=== PATIENT | female | born 1930 | race Caucasian/White ===

== ENCOUNTER 2019-07-04 00:29 | Inpatient (IN) | payer OTHER ==
[~2019-07-04] VITALS: Ht 165.1 cm; Wt 74.5 kg
[2019-07-04] MEDS ORDERED: LASIX 40 MG TAB40 M2 PO (02:23)
[2019-07-04] MEDS ORDERED: SEROQUEL XR50 MG PO (02:24)
[2019-07-04] MEDS ORDERED: PRINIVIL20 M1 PO (02:24)
[2019-07-04 03:23] VITALS: BP 157/68
--- NOTE | 2019-07-04 03:44 | NUR ---
ADMISSION NOTE - PATIENT ARRIVED FROM [facility] ED VIA EMS. SHE ARRIVED TO THE UNIT IN A GOWN AND DISHEVELED APPEARANCE WITH A FOWL SMELLING ODOR. SHE APPEARS CONFUSED AND BELIEVES SHE IS IN [place]. STAFF HAS REDIRECTED PATIENT SEVERAL TIMES. SHE IS [place] AND YOU MUST GET VERY CLOSE TO PATIENT IN ORDER FOR HER TO UNDERSTAND WORDS SAID. STAFF HAS PROVIDED MARKER AND PAPER TO HELP FACILITATE COMMUNICATION. SHE CONTINUES TO MAKE ODD STATEMENTS SUCH 'IS THERE A RIVER AROUND HERE, I COULD JUST JUMP IN IT YOU KNOW.' SHE ALSO STATES SEVERAL TIMES 'I COULD JUST SLIT MY THROAT.'
--- NOTE | 2019-07-04 09:25 | NUR ---
PETER called and spoke with Ivonne VELA and OSWALDO [phone]. This pt has been living at home alone, and has increased paranoid delusions with HI and SI. They are looking into memory AL for her, and this is what prompted her current behavoiral outburst. PETER provided unit information and call back infor for referrals and placement needs.
[2019-07-04 13:53] VITALS: BP 158/94
[2019-07-04 16:24] VITALS: BP 158/94
--- NOTE | 2019-07-04 16:31 | NUR ---
0708 Report received from overnight shift. Patient ate breakfast and took medication. Patient is very bitter that family has put her in the hospital. Patient attended group but minimal participation. Patient has not shown aggression, but sad she is here.
[2019-07-04 17:00] LABS: HEMATOCRIT 36.7 % (37.0-47.0); HEMOGLOBIN 12.1 gm/dL (12.0-15.0); MCH 28.2 pg (26.0-34.0); MCHC 32.8 g/dL (28.0-37.0); MCV 85.9 fL (80.0-100.0); RBC 4.28 mil/uL (4.20-5.00); RDW 14.3 % (10.5-14.5)
[2019-07-04 17:14] LABS: ALBUMIN 3.9 g/dL (3.4-5.0); CALCIUM 9.5 mg/dL (8.5-10.1); CREATININE 1.7 mg/dL (0.6-1.0); POTASSIUM 3.8 mmol/L (3.5-5.1); TOTAL BILIRUBIN 0.5 mg/dL (<0.1-1.0); TOTAL PROTEIN 7.4 g/dL (6.4-8.2)
[2019-07-04 17:38] LABS: FOLIC ACID 6.1 ng/mL (8.6-58.9); TSH 0.122 uIU/mL (0.358-3.740)
[2019-07-04 20:40] VITALS: BP 104/66
--- NOTE | 2019-07-04 23:19 | NUR ---
PT RESTING IN BED UPON ARRIVAL TO SHIFT. PT DID WALK TO RESTROOM WITH WALKER X 2 WITH STEADY BUT PUSHED AND LEANING FORWARD GAIT. PT IRRITABLE AND AGITATED, THREATENING TO HIT PROVIDERS WHEN SHE IS REDIRECTED OR ASSISTED WITH CLOTHING REMOVAL OR INCONTINENCE CARE. PT INITIALLY REFUSED MEDICATIONS BUT WAS LATER REAPPROACHED WITH ICE CREAM AND COMPLIANT.
--- NOTE | 2019-07-04 23:22 | NUR ---
PT RESTLESS AGITATED CONTINUES TO WALK TOWARDS THE WINDOW STATING SHE WANTS TO LEAVE. PT NOT FOLLOWING VERBAL REDIRECTIONS TO GO TOWARDS DOOR. PT ASKING WHERE HER IS, IS THE BABY LYING DOWN, WHAT DID YOU DO TO YOUR HAIR COLOR. PT PHYSICALLY RESISTIVE TO HAVING DIRTY CLOTHES REMOVED AND NEW BRIEF PLACED ON. PT PACING THE HALLS, WALKING TOWARDS THE DOOR, WANDERING INTO PEERS ROOMS. PT ASKED WHY IT IS SO FAR. PRN PROVIDED X 1. APPROXIMATELY 30 MINS LATER PT ASKED TO TURN UP THE FURNACE AND WAS ESCORTED TO BED.
[2019-07-05 08:57] VITALS: BP 133/46
[2019-07-05 10:13] VITALS: BP 133/66
--- NOTE | 2019-07-05 13:19 | NUR ---
708 Report received from overnight shift, patient had a attitude when asked to get up for breakfast. She did her hygeine and ate breakfast. Patient took medication without incident. She does not participatein group, but does talk with other female patients. She denied SI today, patient wants to go home, patient cooperative and redirects well.
[2019-07-05 21:10] VITALS: BP 160/67
--- NOTE | 2019-07-05 23:09 | NUR ---
PT RESTING IN BED UPON ARRIVAL TO SHIFT TALKING WTIH HER ROOMATE. PT IS SMILING, GOOD EYE CONTACT, LAUGHING WITH ROOMMATE. PT COMPLIANT WITH MEDICATION AND ICE CREAM. PT ASKED FOR MORE CLOTHES AND MONEY SO SHE CAN BUY MAXI PADS. PT AMBULATES STEADY WITH WALKER, SHOULDERS ARE SLUMPED OVER. PT HAS CT SCAN IN AM. NO RESISTANCE TOWARD ASSISTANCE WITH ADL CARES OR REDIRECTION.
[2019-07-06 08:11] VITALS: BP 150/78
--- NOTE | 2019-07-06 10:36 | EKG ---
[address] [address] ELECTROCARDIOGRAM REPORT Name: HEIDY LOMBARDO Room #: 523B-B ADM IN M.R.#: [id number] Admission: 07/04/19 Attend Phys: Tramaine James DO Discharge: Date of : 34 Report #: [id number] THIS REPORT FOR: //name// [facility] Test Date: 2019-07-06 Test Time: 10:30:10 Pat Name: HEIDY LOMBARDO Department: Room: [facility] B Gender: F Cold Header: CRISTA : 1930 Requested By: Vivian Linder Order Number: [id number] MD: Alphonso Hensley Measurements Intervals [place] Rate: 73 P: 76 MS: 149 QRS: 39 QRSD: 106 T: 81 QT: 410 QTc: 452 Interpretive Statements Sinus rhythm Anteroseptal infarct, old Unspecific ST-T wave changes Baseline wander No previous ECG available for comparison Electronically Signed On 07-06-2019 10:36:01 CDT by Alphonso Hensley [email or web address] <ELECTRONICALLY SIGNED> By: Alphonso Hensley MD 106 [id number] 29 Alphonso Hensley MD /EPI
[2019-07-06 15:04] LABS: URINE BILIRUBIN NEGATIVE (Negative); URINE BLOOD NEGATIVE (Negative); URINE CLARITY CLEAR; URINE COLOR YELLOW; URINE GLUCOSE-RANDOM* NEGATIVE (Negative); URINE KETONES NEGATIVE (Negative); URINE LEUKOCYTES-REFLEX TRACE (Negative); URINE NITRITE-REFLEX NEGATIVE (Negative); URINE PROTEIN (DIPSTICK) TRACE (Negative); URINE UROBILINOGEN 0.2 E.U./dl (0.2-1.0)
--- NOTE | 2019-07-06 19:28 | NUR ---
Up ambulating in room with walker. Orientated to self. Difficult to communicate with d/t no batteries in hearing aids. Denies pain. Breath sounds clear t/o, no s/o resp distress. Regular HR auscultated. Color pink with brisk capillary refill and palpable peripheral pulses. Active bowel sounds over soft, rounded abdomen. Wearing briefs, continent at times. Sometimes incontinent. No s/o skin breakdown. [address] and 12 lead EKG done. Continues to ambulate in unit. Talking with peers. 1700 Room changed to room 17 d/t need to talk loudly and repeat questions d/t hearing. States she is scared to stay by herself. 1830 Incontinent in briefs. Ambulating on unit with walker without s/o distress.
[2019-07-06 19:29] VITALS: BP 140/67
--- NOTE | 2019-07-06 23:05 | NUR ---
Care assumed of patient at 1915: Patient alert and oriented to person. Patient appears confused and forgetful. Patient has been impulsive and a bit anxious this evening. Patient was moved to a new room which is by herself. Patient reports that she is scared of being alone. Patient also reports that she is afraid of the dark and would like to leave a night light on. Entry light and bathroom lights turned on which patient reports as "better". Patient does keep closing her door to her room. Patient educated multiple times to leave door cracked open due to staff needing to check on her. Patient reports that she is "never" able to sleep and would like to be able to sleep tonight. Patient is hard of hearing. Family is to be bringing in batteries for her hearing aides. Patient took medication whole without difficulty. Patient denies pain or discomfort. Patient denies SI/HI/AH/VH. No s/s of delusional or paranoia behaviors. Patient denied HS snack. Patient restless at times, wandering about her room, taking her clothing off then putting it back on, moving around things in her room. Patient appears to have calmed down and has been resting quietly in bed since approximately 2200.
[2019-07-07 07:00] VITALS: BP 110/87
[2019-07-07 08:30] VITALS: BP 110/87
--- NOTE | 2019-07-07 08:30 | NUR ---
PT VERY [place], PT STATED THAT SHE ISN'T HAPPY BEING HERE IN THIS SITUATION. PT COMPLIANT WITH MEDS AND GROUPS. PT USES WALKER TO AMBULATE, STEADY GAIT. LUNGS CLEAR. NO COMPLAINTS OF PAIN.
[2019-07-07 09:57] VITALS: BP 110/87
[2019-07-07 19:45] VITALS: BP 115/49
--- NOTE | 2019-07-08 00:07 | NUR ---
ASSUMED CARE @ 19:15, PATIENT IN ROOM WITH DOOR CLOSED. UPON UNLOCKING THE DOOR AND EXPLAINING THAT DOORS CANNOT BE SHUT, SHE TALKED ABOUT TRYING TO JUMP OUT THE WINDOW AND ESCAPE AND ANGRY THAT HOSPITAL STAFF WILL NOT LET HER GO. DOES NOT APPEAR TO HAVE ANY LEVEL OF ABILITY TO HEAR. DOES NOT SEEM TO UNDERSTAND THE SPOKEN WORD AT ANY VOLUME, DOES NOT APPEAR TO HAVE ANY LEVEL OF UNDERSTANDING EVEN WHEN STAFF MEMBER LIFTS HER FACE TO MANAGER NEW PRODUCT HER TO LOOK AT THE FACE OF THE SPEAKER. PT WILL SPEAK IN FULL SENTENCES REGARDING HER ANGER WITH FAMILY. SHE DOES NOT ENGAGE IN A TWO WAY CONVERSATION, DUE TO HEARING LOSS. REPORTS THAT SHE WANTS TO KILL HER FAMILY, REPORTS THAT SHE WANTS TO JUMP OUT A WINDOW. REPORTS THAT SHE IS ANGRY WITH HER FAMILY FOR ADMITTING HER TO THE HOSPITAL.
[2019-07-08 00:22] VITALS: BP 115/49
--- NOTE | 2019-07-08 05:24 | NUR ---
SLEPT 8.8 HOURS OVERNIGHT.
[2019-07-08 07:36] VITALS: BP 136/66
[2019-07-08 09:47] VITALS: BP 36/66
--- NOTE | 2019-07-08 12:04 | NUR ---
ASSUMED CARE AT 0700 THIS MORNING. PT. IS VERY HARD OF HEARING. SHE NEEDS BATTERIES FOR HER HEARING AIDS WHEN FAMILY VISITS. PT. ON UNIT FOR MEALS. C/O OF BEING TIRED BETWEEN MEALS. SHE RESTED IN HER BED. SHE WAS COMPLIANT WITH TAKING MEDS LONG THEY WERE CRUSHED AND IN ICE CREAM. SHE WAS IN HER ROOM FOR MORNING GROUP. SHE CONTINUES TO BE VERY CONFUSED. SHE IS ORIENTED TIMES ONE. SHE AMBULATES WITH A WALKER WHEN SHE DOES AMBULATE. SHE HAS BEEN COOPERATIVE WITH THIS STAFF MEMBER THIS MORNING.
[2019-07-08 17:21] LABS: SYPHILIS AB Negative (Negative)
[2019-07-08 17:55] VITALS: BP 136/66
[2019-07-08 19:43] VITALS: BP 169/70
--- NOTE | 2019-07-08 21:50 | NUR ---
PT RESTING IN BED UPON ARRIVAL TO SHIFT. COMPLIANT WITH HS MEDS AND SNACK. PT TALKED WITH STAFF ABOUT COWBOY BOOTS AND SHOOTING TRAP. PT ALSO STATED SHE WANTED TO GO SHOPPING. PT STATED NURSE NEEDED TO HURRY WITH HER MEDICATIONS BECAUSE SHE WAS GOING TO BE ASLEEP SOON. GAIT STEADY, USE OF WALKER, GOOD EYE CONTACT, SMILING.
[2019-07-09 09:19] VITALS: BP 123/61
--- NOTE | 2019-07-09 17:40 | NUR ---
HAS HAD EPISODES OF ANXIETY THROUGHOUT SHIFT-PACING IN HALLWAY-DOES RESPOND TO SUPPORT AND CALMS WITH 1;1 TIME WITH STAFF. VERY HARD OF HEARING -ABLE TO MAKE NEEDS KNOWN. USING ROLLER WALKER FOR AMBULATION AND GAIT IS SLOW AND STEADY. DENIES C/O PAIN. TAKES MEDS WITHOUT RESISITANCE.
[2019-07-09 19:15] VITALS: BP 134/64
--- NOTE | 2019-07-09 21:51 | NUR ---
PT SITTING IN DAY ROOM WITH PEERS UPON ARRIVAL TO SHIFT. PT APPROACHED STAFF CONCERNED HOW SHE WILL TAKE CARE OF TWO FEMALE PEERS. PT AMBULATED WITH WALKER, STEADY GAIT TO HER ROOM. PT SHUTS HER DOOR AND HAS TO BE REMINDED TO LEAVE IT OPEN. PT COMPLIANT WITH HS MEDS AND SNACK. SMILING GOOD EYE CONTACT, REMAINS [place] APACHE. COMPLIANT WITH ADL CARES,
[2019-07-10 09:01] VITALS: BP 130/69
[2019-07-10 09:51] VITALS: BP 130/69
[2019-07-10 10:53] VITALS: BP 130/69
--- NOTE | 2019-07-10 11:34 | NUR ---
0700 Report received from overnight shift, patient alert coopertive. Patient ate breakfast and took medication without incidence. Patient has some confusion, Asks about going shopping for clothes. Patient walks with walker ambulates well.
--- NOTE | 2019-07-10 16:30 | NUR ---
[facility] recieved notice that pt will d/c home with Ronan WATSON tomorrow 07/11 at 11am. Family will product picker
[2019-07-10 20:16] VITALS: BP 148/86
--- NOTE | 2019-07-10 23:40 | NUR ---
ASSUMED CARE OF PATIENT AT APPROXIMATELY 1915, SHE IS CURRENTLY IN HER ROOM CONSTANTLY SHUTTING THE DOORS FOR AN INCREASE IN PRIVACY. THIS NURSE EXPLAINED THE REASONING BEHIND NEEDING OPEN DOORS AND PATIENT STATES 'ILL JUST KEEP CLOSING THEM.' SHE IS EXTREMELY DISCHARGED FOCUSED AND SOME MANIC OR ANXIOUS BX'S OCCUR WHEN PATIENT APPEARS TO GET EXCITED. SHE DID NOT VERBALIZE AND SI HI OR HALLUCINATIONS TO THIS NURSE, NOR DID THIS NURSE WITNESS ANY. SHE WAS MEDICATION COMPLIANT, AND RECEIVED REDIRECTION EASILY. SHE DID NOT RERPORT MEDICAL CONCERNS AND DOES NOT APPEAR TO BE IN DISTRESS. NURSING WILL MAINTAIN ALL PRECAUTIONS TO ENSURE SAFETY AT ALL TIMES.
[2019-07-11 08:55] VITALS: BP 137/77
[2019-07-11] MEDS ORDERED: SEROQUEL XR50 MG PO (09:17)
[2019-07-11] MEDS ORDERED: NAMENDA 5 MG TAB5 M1 PO ×5 (09:18→09:20)
[2019-07-11] MEDS ORDERED: CALCIUM 500 +1 EAC5 PO (09:20)
[2019-07-11] MEDS ORDERED: FOLIC ACID1 MG PO (09:21)
[2019-07-11] MEDS ORDERED: B-12500 MCG PO (09:21)
[2019-07-11] MEDS ORDERED: ERGOCALCIF50000 UNIT PO (09:22)
[2019-07-11 10:15] VITALS: BP 137/71
--- NOTE | 2019-07-11 10:32 | NUR ---
0700 Report received from overnight shift, patient ate breakfast took medication without incidence. patient participated in morning group, patient cooperative. Patient is discharging today to home.
[2019-07-11 10:52] VITALS: BP 137/71
--- NOTE | 2019-07-11 11:21 | NUR ---
SW confirmed with [facility] for the d/c today to pt's dght'd home with HH. Sent referral and updates.
--- NOTE | 2019-07-11 12:15 | NUR ---
12:17 Patient discharged to home belongings may have been taken by housekeeping. Guardian aware and they decided to leave without belongings.
--- NOTE | 2019-07-21 21:34 | D ---
[facility] [place] [address] DISCHARGE SUMMARY Name: HEIDY LOMBARDO Room #: 517-A [facility] IN M.R.#: [id number] Admission: 07/04/19 Attend Phys: Tramaine James DO Discharge: 07/11/19 Date of : 34 Report #: [id number] THIS REPORT FOR: //name// CC: Ra Roddy James DATE OF SERVICE: 07/11/2019 INPATIENT PSYCHIATRIC DISCHARGE SUMMARY ATTENDING PHYSICIAN: Tramaine James DO. 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 Medical comorbidities include chronic kidney disease stage 4; COPD; hearing loss, likely sensorineural; hypertension. DISCHARGE PLAN: Discharging to her granddaughter [facility]ane[facility]ar[facility] house who is a DPOA. The patient will be pursuing care with her primary care physician. At this point, she does not actively need a psychiatrist to manage her. Her DPOA wanted to begin cognitive enhancers for discharge medications, titration on memantine - she should have 5 more days of 7 mg Namenda XR then 7 days of 14 mg and then 21 mg thereafter. We had to do the b.i.d. formulation through the hospital's formulary. Calcium carbonate 1 tab p.o. t.i.d. supplementation, cyanocobalamin 1000 mcg p.o. daily for supplementation, folic acid 1 mg p.o. daily for supplementation, ergocalciferol 50,000 international units p.o. weekly for supplementation, so 1-month script was given for those meds that were on prescription. Continue Lasix 40 mg p.o. daily for hypertension, lisinopril 20 mg p.o. daily, Seroquel XR 50 mg p.o. at bedtime, she had been taking outpatient for sleep, she may continue that. DIET: Regular. ACTIVITY LEVEL: As tolerated. The patient will require 24/7 supervision assistance due to her dementia. REASON FOR ADMISSION/HOSPITALIZATION: As follows: Transferred I believe from [facility]. She made suicidal statements and the daughter called 911. HOSPITAL COURSE: The patient denied any depression at home. Her SLUMS score was low at 5/30, I think her hearing loss impacted that. Other things during [facility] [address] [place] [address] DISCHARGE SUMMARY Name: HEIDY LOMBARDO Room #: 517-A [facility] IN .R.#: [id number] Admission: 07/04/19 Attend Phys: Tramaine James DO Discharge: 07/11/19 Date of : 34 Report #: [id number] the hospitalization: Electrocardiogram was done, which showed a QTC of 452, QT 410, ventricular rate 73, OH interval 149 and sinus rhythm. LABORATORY DATA: Of note, this admission, CBC grossly normal. Chemistries within normal limits except creatinine 1.7, BUN 31, GFR 28. Vitamin D low at 8.2. Folate 6.112. TSH 4.122. Free T4 0.9, which is normal. T3 low at 65. I believe Dr. Linder elected not to supplement. Syphilis serology was negative. She has not had a formal dementia workup. CT head: generalized atrophy with attenuation throughout cerebral white matter bilaterally. No intracranial hemorrhage, mass effect or abnormal extraaxial fluid collections, chronic age-related changes read by Dr. Chino. PHYSICAL EXAMINATION VITAL SIGNS: At time of discharge, temperature 36.9, pulse 75, respirations 16, BP 137/71, O2 sat 95%. MUSCULOSKELETAL: Uses a walker, kyphotic. MENTAL STATUS EXAMINATION: This is a well-developed, fairly nourished, adolescent female, appearing stated age. Attention limited. Concentration limited. Speech is normal, rate, rhythm, tone process is linear and goal oriented. Thought content, focused on discharge, inability to go to the nursing room secondary to agitation. No psychomotor retardation. Denied SI or HI. Some helplessness. Denied hopelessness. Denied homicidal intent or plan. Denied suicidal intent or plan. Memory known to be impaired. Insight limited. Judgment limited. Fund of knowledge well below the premorbid baseline. PROGNOSIS: For this patient is guarded and will depend on the amount of good care and family support, which is likely to get as there is a strongly motivated family helping this patient. <ELECTRONICALLY SIGNED> By: Tramaine James DO 07/21/19 [id number] Tramaine James DO /nt
== END 2019-07-11 12:17 | disposition home health service (06) | DRG 57 ==
LOC: SBH
PROVIDERS: Nurse Practitioner Psychiatric/Mental Health; ADMIT Psychiatry & Neurology Psychiatry
DX: G30.9 Alzheimer's disease, unspecified (principal); R45.851 Suicidal ideations; N18.4 Chronic kidney disease, stage 4 (severe); F02.81 Dementia in other diseases classified elsewhere, unspecified severity, with behavioral disturbance; J44.9 Chronic obstructive pulmonary disease, unspecified; E03.9 Hypothyroidism, unspecified; I12.9 Hypertensive chronic kidney disease with stage 1 through stage 4 chronic kidney disease, or unspecified chronic kidney disease; E53.8 Deficiency of other specified B group vitamins; E55.9 Vitamin D deficiency, unspecified; F32.9 Major depressive disorder, single episode, unspecified; Z87.440 Personal history of urinary (tract) infections; Z85.038 Personal history of other malignant neoplasm of large intestine; Z82.49 Family history of ischemic heart disease and other diseases of the circulatory system; Z80.9 Family history of malignant neoplasm, unspecified; Z79.899 Other long term (current) drug therapy
CPT/HCPCS: 10880